=== PATIENT | male | born 1975 ===

== ENCOUNTER 2020-07-08 10:49 | Emergency (ER) | payer SELFPAY ==
[2020-07-08] MEDS ORDERED: SODIUM CHLORIDE 0.9% 1000 ML 1,000 ML IV ONE (11:20)
[2020-07-08 11:57] LABS: Basophils # (Auto) 0.1 K/mm3 (0.0-0.1); Basophils % (Auto) 0.7 % (0.0-1.8); Eosinophils # (Auto) 0.1 K/mm3 (0.0-0.4); Eosinophils % (Auto) 1.1 % (0.0-4.3); Hematocrit 49.7 % (35.5-45.6); Hemoglobin 16.9 gm/dl (11.8-15.2); Lymphocytes # (Auto) 1.8 K/mm3 (1.2-5.4); Lymphocytes % (Auto) 23.1 % (13.4-35.0); Mean Corpuscular HGB Conc 34 % (32-34); Mean Corpuscular Volume 85 fl (84-94); Monocytes # (Auto) 0.6 K/mm3 (0.0-0.8); Monocytes % (Auto) 7.3 % (0.0-7.3); Platelet Count 320 K/mm3 (140-440); Red Blood Count 5.88 M/mm3 (3.65-5.03); Red Cell Distribution Width 13.2 % (13.2-15.2)
[2020-07-08 12:16] LABS: Alanine Aminotransferase 34 units/L (7-56); Albumin 4.2 g/dL (3.9-5); BUN/Creatinine Ratio 9; Blood Urea Nitrogen 7 mg/dL (9-20); Calcium 9.6 mg/dL (8.4-10.2); Hemolysis Index 18
--- NOTE | 2020-07-08 12:34 | XRay Report ---
CHEST 1 VIEW 07/08/2020 11:25 AM INDICATION / CLINICAL INFORMATION: chest pain, +covid. COMPARISON: None available. FINDINGS: SUPPORT DEVICES: None. HEART / MEDIASTINUM: No significant abnormality. LUNGS / PLEURA: No significant pulmonary or pleural abnormality. No pneumothorax. ADDITIONAL FINDINGS: No significant additional findings. IMPRESSION: No acute cardiopulmonary abnormality. Signer Name: Chuck Morales MD Signed: 07/08/2020 12:29 PM Workstation Name: [id number]
--- NOTE | 2020-07-08 12:49 | Emergency Department Report ---
ED General Adult HPI - General Chief complaint: Upper Respiratory Infection Stated complaint: COVID REALATED PAIN Time Seen by Provider: 07/08/20 11:24 Source: patient Mode of arrival: Ambulatory Limitations: Language Barrier - History of Present Illness Initial comments: 45-year-old male patient presents with complaints of cough and congestion since being diagnosed with Covid 7 days ago. Patient states his symptoms have been ongoing for 10 days and are improving. He denies any shortness of breath, fever, abdominal pain, nausea/vomiting/diarrhea, or hemoptysis. He reports he had a single episode of chest pain that lasted a few seconds earlier today when he was feeling anxious. He denies any past history of heart disease or family history of heart disease. He describes the pain as aching and right-sided. - Related Data Previous Rx's Medication Instructions Recorded Last Taken Type Benzonatate 200 mg PO TID PRN #20 capsule 07/08/20 Unknown Rx Fluticasone [Flonase] 2 spray NS QDAY PRN #1 bottle 07/08/20 Unknown Rx Levocetirizine Dihydrochloride 5 mg PO QHS PRN #10 tablet 07/08/20 Unknown Rx [Xyzal] Allergies Allergy/AdvReac Type Severity Reaction Status Date / Time No Known Allergies Allergy Unverified 07/08/20 10:52 ED Review of Systems ROS: Stated complaint: COVID REALATED PAIN Other details as noted in HPI Constitutional: denies: chills, diaphoresis, fever, malaise, weakness ENT: congestion. denies: throat pain Respiratory: cough. denies: shortness of breath, SOB with exertion Cardiovascular: denies: chest pain, palpitations, edema, syncope Gastrointestinal: denies: abdominal pain, nausea, vomiting Skin: denies: rash, lesions Neurological: denies: headache Hematological/Lymphatic: denies: swollen glands ED Past Medical Hx - Past Medical History Previous Medical History?: No - Surgical History Past Surgical History?: No - Social History Smoking Status: Never Smoker Substance Use Type: None - Medications Home Medications: Home Medications Medication Instructions Recorded Confirmed Last Taken Type Benzonatate 200 mg PO TID PRN #20 capsule 07/08/20 Unknown Rx Fluticasone [Flonase] 2 spray NS QDAY PRN #1 bottle 07/08/20 Unknown Rx Levocetirizine Dihydrochloride 5 mg PO QHS PRN #10 tablet 07/08/20 Unknown Rx [Xyzal] ED Physical Exam - General Limitations: Language Barrier General appearance: alert, in no apparent distress - Head Head exam: Present: atraumatic, normocephalic - Eye Eye exam: Present: normal appearance. Absent: scleral icterus - ENT ENT exam: Present: mucous membranes moist - Neck Neck exam: Present: normal inspection, full ROM - Respiratory Respiratory exam: Present: normal lung sounds bilaterally. Absent: respiratory distress, wheezes, rales, rhonchi, chest wall tenderness - Cardiovascular Cardiovascular Exam: Present: regular rate, normal rhythm. Absent: systolic murmur, diastolic murmur, rubs, gallop - Back Exam Back exam: Present: normal inspection - Neurological Exam Neurological exam: Present: alert, oriented X3, normal gait - Psychiatric Psychiatric exam: Present: normal affect, normal mood - Skin Skin exam: Present: warm, dry, intact, normal color. Absent: rash, cyanosis, diaphoretic, petechiae, ecchymosis ED Course Vital Signs 07/08/20 07/08/20 07/08/20 10:55 11:43 12:55 Temperature 98.1 F 98.8 F Pulse Rate 117 H 96 H Respiratory 16 20 Rate Blood Pressure 145/95 Blood Pressure 140/88 [Left] O2 Sat by Pulse 98 96 97 Oximetry ED Medical Decision Making - Lab Data Result diagrams: 07/08/20 11:24 07/08/20 11:24 - Radiology Data Radiology results: report reviewed CHEST 1 VIEW 07/08/2020 11:25 AM INDICATION / CLINICAL INFORMATION: chest pain, +covid. COMPARISON: None available. FINDINGS: SUPPORT DEVICES: None. HEART / MEDIASTINUM: No significant abnormality. LUNGS / PLEURA: No significant pulmonary or pleural abnormality. No pneumothorax. ADDITIONAL FINDINGS: No significant additional findings. IMPRESSION: No acute cardiopulmonary abnormality. - Medical Decision Making 45-year-old male patient presents with complaints of cough and congestion since being diagnosed with Covid 7 days ago. Patient states his symptoms have been ongoing for 10 days and are improving. He denies any shortness of breath, fever, abdominal pain, nausea/vomiting/diarrhea, or hemoptysis. He reports he had a single episode of chest pain that lasted a few seconds earlier today when he was feeling anxious. He denies any past history of heart disease or family history of heart disease. He describes the pain as aching and right-sided. CBC and CMP are normal. Lungs are clear to auscultation bilaterally on exam. Chest x-ray is normal. Patient was initially tachycardic at 117. Patient given 1 L saline and heart rate is down in the 90s. He states he is feeling well overall. Will treat patient's symptoms with Tessalon Perles and antihistamines and Flonase. Also recommend patient take vitamin C and zinc and continue to quarantine for 5 more days. Strict return precautions were discussed in detail with patient who verbalizes understanding peer his vitals are normal he is well- appearing and stable for discharge home. Recommend follow-up with PCP in 5 to 7 days Critical care attestation.: If time is entered above; I have spent that time in minutes in the direct care of this critically ill patient, excluding procedure time. ED Disposition Clinical Impression: Cough, COVID-19, Nasal congestion Disposition: DC-01 TO HOME OR SELFCARE Is pt being admited?: No Condition: Stable Instructions: COVID-19, Allergic Rhinitis, Adult, Prevent the Spread of COVID- 19 if You Are Sick - [facility] [place] Prescriptions: Levocetirizine Dihydrochloride [Xyzal] 5 mg PO QHS PRN #10 tablet PRN Reason: congestion/cough Benzonatate 200 mg PO TID PRN #20 capsule PRN Reason: Cough Fluticasone [Flonase] 2 spray NS QDAY PRN #1 bottle PRN Reason: nasal congestion Referrals: [facility] [Provider Group] - 7-10 days
[2020-07-08 12:57] VITALS: BP 140/88
== END 2020-07-08 13:43 | disposition home or self-care (01) ==
LOC: ED 10:49
DX: U07.1 COVID-19 (principal); R05 Cough; R09.81 Nasal congestion; Z79.899 Other long term (current) drug therapy
CPT/HCPCS: 36415; 71045; 80053; 84484; 85025; 96360; 99284; J7030